=== PATIENT | male | born 1945 | race Caucasian/White ===

== ENCOUNTER → 2017-04-29 | Outpatient (CLI) | payer MEDICARE ==
[2017-04-29 12:55] LABS: PATH.CAST-FLAG NOT PRESENT; SPERM-FLAG NOT PRESENT; SRC-FLAG NOT PRESENT; XTAL-FLAG NOT PRESENT; YLC-FLAG NOT PRESENT
[2017-04-29 13:13] LABS: ASPARTATE AMINO TRANSFERASE 17 U/L (15-37); BLOOD UREA NITROGEN 24 mg/dL (7-18)
[2017-04-30 12:06] LABS: CREATININE URINE 276.3 mg/dL (Not Estab.)
== END | disposition home or self-care (01) ==
LOC: CFH 10:19
PROVIDERS: ATTEND Internal Medicine
DX: E78.2 Mixed hyperlipidemia (principal); I25.10 Atherosclerotic heart disease of native coronary artery without angina pectoris; E11.22 Type 2 diabetes mellitus with diabetic chronic kidney disease; E11.42 Type 2 diabetes mellitus with diabetic polyneuropathy; I10 Essential (primary) hypertension
CPT/HCPCS: 36415; 80053; 80061; 81001; 82043; 82570; 83036; 83735; 83970; 84100

== ENCOUNTER → 2020-06-09 | Emergency (ER) | payer MEDICARE ==
[~2020-06-09] VITALS: Ht 180.3 cm; Wt 96.4 kg
[~2020-06-09] MED LIST: LIDOCAINE-MPF 1%, 5ML ONE; PENICILLIN VK 500MG TABLET ONE; PENICILLIN VK 500MG TABLET PO STA
[2020-06-09 01:50] VITALS: BP 151/86
--- NOTE | 2020-06-09 02:29 | NUR ---
pt medicated per mar
--- NOTE | 2020-06-09 02:54 | NUR ---
PT D/C WITH D/C SUMMARY AND SCRIPTS. ALL QUESTIONS ANSWERED. PT REPORTS RELIEF OF PAIN POST NERVE BLOCK AND AMBULATES TO REGISTRATION DESK WITH STEADY GAIT FOR D/C HOME. PT DENIES ANY OTHER NEEDS PERTAINING TO THIS VISIT.
== END ==
LOC: ED 02:16
DX: K08.89 Other specified disorders of teeth and supporting structures (principal); I10 Essential (primary) hypertension
CPT/HCPCS: 64400; 99284